=== PATIENT | female | born 1975 | race Asian ===

== ENCOUNTER 2025-08-25 16:25 | Emergency (ER) | payer MEDICAID ==
[~2025-08-25] VITALS: Ht 160 cm; Wt 74.0 kg
[2025-08-25 17:07] VITALS: O2SAT 100
[2025-08-25] MEDS: KETOROLAC 15MG/ML VIAL IV ONE (19:23)
[2025-08-25 19:54] LABS: BASOPHILS % 0.7 % (0.0-2.0); EOSINOPHILS % 1.5 % (0.0-5.0); HEMATOCRIT. 34.8 % (36.0-48.0); HEMOGLOBIN. 10.8 g/dL (12.0-16.0); LYMPHOCYTES % 26.2 % (20.0-50.0); MEAN PLATELET VOLUME 8.5 fl (7.4-10.4); MONOCYTES % 7.8 % (2.0-8.0); NEUTROPHILS % 63.8 % (40.0-76.0); PLATELET 371 x1000/uL (130-400); RED BLOOD CELL COUNT 4.48 mill/uL (4.2-5.4); RED CELL DISTRIBUTION WIDTH 15.6 % (11.6-14.6)
[2025-08-25 20:05] LABS: HCG SCREEN NEGATIVE
[2025-08-25 20:08] LABS: CREATININE 0.7 mg/dL (0.6-1.0)
[2025-08-25 20:09] LABS: PROTEIN TOTAL 7.0 g/dL (6.0-8.3); UREA NITROGEN BLOOD 7 mg/dL (9-23)
[2025-08-25 20:10] LABS: ASPARTATE AMINOTRANSFERASE 18 IU/L (<34)
[2025-08-25 20:11] LABS: BILIRUBIN DIRECT < 0.1 mg/dL (<=3.0); BILIRUBIN TOTAL 0.2 mg/dL (0.1-1.0)
[2025-08-25] MEDS ORDERED: IOHEXOL-300 100 ML BOTTLE ONE (21:50)
[2025-08-25] MEDS ORDERED: AMOX1TAB16 MT (23:16)
[2025-08-25 23:24] VITALS: BP 145/82; PULSE 69; RESP 16; TEMP 36.8; O2SAT 99
[2025-08-25] MEDS ORDERED: CLIN-194 MT (23:31)
[2025-08-25] MEDS: CLINDAMYCIN HCL 150MG CAPSULE PO STA (23:42)
[2025-08-25] MEDS: AMOXICILLIN/POTASSIUM CLAVULANATE 875/125MG TAB PO ONE (23:45)
== END 2025-08-25 23:47 | disposition home or self-care (01) ==
LOC: ER 16:25
DX: H66.92 Otitis media, unspecified, left ear (principal); Z88.0 Allergy status to penicillin
CPT/HCPCS: 80076; 80048; 84703; 85025; 36415; 70481; 96374; 99285; Q9967; J1885; Z7610